=== PATIENT | male | born 1995 | race African-American/Black ===

== ENCOUNTER 2019-04-14 00:04 | Emergency (ER) | payer SELFPAY ==
[2019-04-14 00:29] LABS: #Basophils 0.1 thou/uL (0.0-0.2); #Eosinphils 0.2 thou/uL (0.0-0.7); #Lymphocytes 2.9 thou/uL (1.20-3.40); #Monocytes 0.9 thou/uL (0.11-0.59); %Basophils 1.2 % (0.0-1.0); %Eosinophils 2.4 % (0.0-10.0); %Lymphocytes 41.3 % (21.0-51.0); %Monocytes 13.1 % (0.0-10.0); Hemoglobin 15.5 g/dL (14.0-18.0); Mean Corpuscular HGB CONC 33.3 g/dL (32.0-36.0); Mean Corpuscular Hemoglobin 30.8 pg (27.0-31.0); Mean Corpuscular Volume 92.4 fL (78.0-98.0); Mean Platelet Volume 6.9 fL (7.4-10.4); Platelet Count 268 thou/uL (130-400); RBC Distribution Width 12.2 % (11.5-14.5); Red Blood Cell (RBC) Count 5.04 mill/uL (4.70-6.10); White Blood Cell (WBC) Count 7.1 thou/uL (4.8-10.8)
[2019-04-14 00:31] LABS: Bilirubin Small (Negative); Blood, Urine Negative (Negative); Clarity CLEAR (Clear); Glucose, Urine (Dipstick) Negative (Negative); Leukocyte Small (Negative); Nitrite Negative (Negative); Protein, Urine (Dipstick) 30 mg/dL (Neg-Trace); Specific Gravity, Urine 1.026 (1.002-1.036); pH, Urine 6.5 (5.0-9.0)
[2019-04-14 00:34] LABS: Bacteria/HPF None Seen HPF (None Seen); Pathc Cast-AUWi Flag 0.68 (0-2.49); RBC/HPF 0-3 HPF (0-3); Squamous Epithelial 0-3 HPF (0-3)
[2019-04-14 00:45] LABS: Hyaline Casts/LPF NONE SEEN LPF (0-3 Hyaline)
[2019-04-14 00:50] LABS: ALT (SGPT) 7 U/L (8-55); AST (SGOT) 12 U/L (5-34); Albumin 4.2 g/dL (3.5-5.0); Alkaline Phosphatase 64 U/L (40-150); Anion Gap 10 mmol/L (10-20); BUN (Urea Nitrogen) 8 mg/dL (8.9-20.6); Bilirubin, Total 0.6 mg/dL (0.2-1.2); Calc. Creatinine Clearance 0 mL/min (70-130); Calcium 9.5 mg/dL (7.8-10.44); Carbon Dioxide 29 mmol/L (22-29); Chloride 102 mmol/L (98-107); Estimated GFR-MDRD Greater than 90; Globulin 3.3 g/dL (2.4-3.5); Glucose 83 mg/dL (70-105); Lipase 16 U/L (8-78); Potassium 3.9 mmol/L (3.5-5.1); Protein, Total 7.5 g/dL (6.0-8.3); Sodium 137 mmol/L (136-145)
[2019-04-14] MEDS ORDERED: Ondansetron PF 4 MG/2 ML Vial ONE (02:13)
[2019-04-14] MEDS ORDERED: Morphine 4 MG/ML VIAL ONE (02:13)
--- NOTE | 2019-04-14 07:35 | CT ---
PRELIMINARY REPORT/[facility]/EMERGENCY AFTER HOURS PROCEDURE: EXAM: CT Abdomen and Pelvis With Contrast EXAM DATE/TIME: 04/14/2019 2:45 AM CLINICAL HISTORY: 23 years old, male; Abdominal pain; Patient HX: 23m C/O ruq pain that has increased in both frequency and intensity over the past 4 days. Reports 2 loose stools 2 days ago, but none since. Denies any f/c, vomiting, cough, cp or SOB TECHNIQUE: Imaging protocol: Axial computed tomography images of the abdomen and pelvis with intravenous contrast. Coronal reformatted images were created and reviewed. COMPARISON: US Gallbladder RUQ 04/14/2019 2:10 AM FINDINGS: ABDOMEN: Liver: Normal. No mass. Gallbladder and bile ducts: Normal. No calcified stones. No ductal dilation. Pancreas: Normal. No ductal dilation. Spleen: Normal. No splenomegaly. Adrenals: Normal. No mass. Kidneys and ureters: Normal. No hydronephrosis. Stomach and bowel: No bowel wall thickening or intestinal obstruction. Appendix: Normal appendix. PELVIS: Bladder: Unremarkable as visualized. Reproductive: Unremarkable as visualized. ABDOMEN and PELVIS: Intraperitoneal space: Normal. No free air. No significant fluid collection. Bones/joints: No acute fracture. No dislocation. Soft tissues: Unremarkable. Vasculature: Normal. No abdominal aortic aneurysm. Lymph nodes: Normal. No enlarged lymph nodes. IMPRESSION: No acute findings. Thank you for allowing us to participate in the care of your patient. Dictated and Authenticated by: Josesito Rodriguez MD 04/14/2019 2:56 AM Central Time ([place] & [place]) FINAL REPORT EMERGENCY AFTER HOURS CT ABDOMEN AND PELVIS: IMPRESSION: I agree with the pulmonary report provided. No definite acute CT abnormality is identified. When comp ared to the right upper quadrant ultrasound, there are mildly prominent lymph nodes in the periportal region. A CT follow-up in 6-8 weeks may be helpful to document stability or resolution. Transcribed Date/Time: 04/14/2019 8:32 AM
--- NOTE | 2019-04-14 07:40 | ULT ---
PRELIMINARY REPORT/[facility]/EMERGENCY AFTER HOURS PROCEDURE: EXAM: US Abdomen Limited, Right Upper Quadrant EXAM DATE/TIME: 04/14/2019 2:10 AM CLINICAL HISTORY: 23 years old, male; Pain; Other: Ruq TECHNIQUE: Imaging protocol: Real-time ultrasound of the abdomen with image documentation. Examination was focused on the right upper quadrant. COMPARISON: No relevant prior studies available. FINDINGS: Liver: Equivocal lymphadenopathy at the posterior aspect of the left lobe of liver, adjacent to the aorta, suboptimally visualized on this study. Gallbladder: Normal contracted gallbladder. Common bile duct: Normal. No stones. No dilation. Pancreas: Visualized pancreas is unremarkable. Right kidney: Normal. No mass. No hydronephrosis. IMPRESSION: Equivocal lymphadenopathy at the posterior aspect of the left lobe of liver, adjacent to the aorta, suboptimally visualized on this study. Thank you for allowing us to participate in the care of your patient. Dictated and Authenticated by: Josesito Rodriguez MD 04/14/2019 3:24 AM Central Time ([place] & [place]) FINAL REPORT EMERGENCY AFTER HOURS RIGHT UPPER QUADRANT ULTRASOUND: I agree with the preliminary report provided. There is some heterogeneity seen posterior to the left hepatic lobe possibly in the region of the cau date lobe which may be responsible for the findings. Comparison CT does demonstrate mildly prominent periportal lymph node measuring 1.3 cm near this region. An additional 8 mm periportal lymp h node is also present. This may also be responsible for the ultrasound findings. CT follow-up in 6-8 weeks to document stability or resolution of these findings may be helpful. Comparison CT was performed following the right upper quadrant ultrasound on April 14, 2019 at 2:46 AM. Transcribed Date/Time: 04/14/2019 8:27 AM
[2019-04-14] MEDS ORDERED: Iopamidol 370 76% 100 ML VIAL ONE (11:01)
== END 2019-04-14 04:04 | disposition home or self-care (01) ==
LOC: ERS 00:04
DX: R10.11 Right upper quadrant pain (principal); F31.9 Bipolar disorder, unspecified; F90.9 Attention-deficit hyperactivity disorder, unspecified type; Z87.891 Personal history of nicotine dependence
CPT/HCPCS: 36415; 74177; 76705; 80053; 81003; 81015; 83690; 85025; 96361; 96374; 96375; J2270; J2405; Q9967